=== PATIENT | female | born 1965 | race Caucasian/White ===

== ENCOUNTER → 2016-03-12 | Outpatient (CLI) | payer BC ==
[~2016-03-12] MED LIST: ECHI125T PO; MULTTAB5 PO
[2016-03-12 13:28] LABS: BASO % 0.2 %; BASO ABS # 0.02 K/uL (0-0.2); COMPLETE YES; EOS % 0.5 %; HEMATOCRIT 39.6 % (37-47); IG% 0.2 %; LYMPH % 24.6 %; LYMPH ABS # 2.02 K/uL (1.2-3.4); MEAN CELL VOLUME 89.8 fL (80-100); MEAN CORPUSCULAR HEMOGLOBIN 30.2 pg (25-34); MEAN CORPUSCULAR HGB CONC 33.6 g/dl (32-36); MONO % 6.4 %; NEUT % 68.1 %; PLATELET COUNT 278 K/uL (130-400); RED BLOOD COUNT 4.41 M/uL (4.2-5.4); WHITE BLOOD COUNT 8.22 K/uL (4.8-10.8)
[2016-03-12 13:55] LABS: PREG INTERNAL NEGATIVE QC NEG CLEAR BACKGROUND; PREG INTERNAL POSITIVE QC POS CONTROL LINE
== END | disposition home or self-care (01) ==
LOC: C.CPL 12:05
PROVIDERS: ATTEND Obstetrics & Gynecology
DX: Z01.810 Encounter for preprocedural cardiovascular examination (principal); Z01.812 Encounter for preprocedural laboratory examination; I49.3 Ventricular premature depolarization

== ENCOUNTER → 2016-03-15 | Day surgery (SDC) | payer BC ==
[2016-03-08 13:07] VITALS: Ht 170.2 cm; Wt 99.1 kg
--- NOTE | 2016-03-12 12:01 | HISTORY & PHYSICAL EXAMINATION ---
DATE OF ADMISSION: 03/15/16 CHIEF COMPLAINT: Irregular bleeding, abnormal transvaginal ultrasound. HISTORY OF PRESENT ILLNESS: The patient is a 50-year-old nullip, had been menopausal for over a year and during the last year, she has had 3 episodes of bleeding of 5-6 days and some of the episodes are heavy. She had a transvaginal ultrasound on 02/28/2016 showing a 1 cm thick endometrium with a few cystic areas. PAST SURGICAL HISTORY: She has had a scope for an upper GI and she has had wisdom teeth. PAST MEDICAL HISTORY: No history of rheumatic fever, heart disease, heart murmur, diabetes, tuberculosis. She is on no chronic medications. SOCIAL HISTORY: No smoking. No alcohol intake. Works for [employer] FAMILY HISTORY: Mom is 80, overweight, high blood pressure. Father at age 82, congestive heart failure. One sister and 1 brother in good health. REVIEW OF SYSTEMS: Had no symptoms of frequent or severe headaches, ear infections, nosebleed, sore throats, and kidney or bladder infections. PHYSICAL EXAMINATION: GENERAL: Well-developed, well-nourished 50-year-old white female, alert, oriented x3 and cooperative, in no acute distress, appears stated age. EYES: Conjunctivae are pink, sclerae white, no evidence of jaundice. EARS: Had normal light reflex bilaterally. NOSE: Had normal mucosa. Septum is midline. There were no polyps. THROAT: No erythema or evidence of infection. Teeth are in good state of repair. HEAD: Normocephalic, normal distribution of hair. NECK: Supple. Trachea midline. Thyroid is not enlarged. There is no adenopathy appreciated. Both carotids are of good intensity. CHEST: Clear to auscultation and percussion. No wheezes, rales or rhonchi appreciated. HEART: Had regular rhythm. S1 and S2 are normal. BREASTS: Normal. ABDOMEN: Soft and nontender. PELVIC: Revealed atrophic vaginitis, normal appearing cervix. Uterus was top, normal size, and no adnexal masses appreciated. IMPRESSIONS OF THIS CASE: Abnormal transvaginal ultrasound, postmenopausal bleeding. [facility], [place]
[~2016-03-15] VITALS: Ht 170.2 cm; Wt 99.1 kg
[~2016-03-15] MED LIST changes: +ATROPINE SULFATE 0.1 MG/ML 5ML SYR IV PRN; +DEXAMETHASONE SOD INJ 4 MG/ML VIAL ONE; +EpHEDrine SULFATE INJ 50 MG/ML AMP IV PRN; +FENTANYL CITRATE INJ 50 MCG/1 ML 2 ML VIAL IV PRN; +FENTANYL CITRATE INJ 50 MCG/1 ML 2 ML VIAL ONE; +HYDROCODONE/ACETAMOPHEN 5/325MG TAB PO PRN; +IBUPROFEN 600 MG TAB PO PRN; +KETOROLAC TROMETHAMINE 30 MG/ML VIAL IV. PRN; +KETOROLAC TROMETHAMINE 30 MG/ML VIAL ONE; +LACTATED RINGER'S 1000ML 1,000 ML IV SCH; +LIDOCAINE HCL 2% 2 ML VIAL (20MG/ML) ONE; +MIDAZOLAM HCL 1 MG/ML 2ML VIAL ONE; +ONDANSETRON INJ 2 MG/ML 2 ML VIAL IV PRN; +ONDANSETRON INJ 2 MG/ML 2 ML VIAL ONE; +OXYCODONE/ACETAMINOPHEN 5-325 TAB PO PRN; +PROPOFOL IV EMULSION 10 MG/ML 20 ML VIAL IV ONE; +SODIUM CHLORIDE 0.9% 1000ML 1,000 ML IV SCH
--- NOTE | 2016-03-15 11:55 | History & Physical Bridge Note ---
H&P Re-Evaluation Bridge Note: I have examined the patient, reviewed the History & Physical and in the interval since the performance of the History & Physical I have noted the following changes of clinical significance: No changes noted Patient for dilatation curettage and hysteroscopy
--- NOTE | 2016-03-15 12:32 | [facility] Post Operative Brief Note ---
Immediate Operative Summary Operative Date Mar 15, 2016. Pre-Operative Diagnosis Post Menopausal Bleeding Post-Operative Diagnosis same Procedure(s) Performed Dilatation And Curettage, Hysteroscopy Surgeon Dr. Jena King Legal File Clerk Surgeon(s) 0 Estimated Blood Loss 5cc Findings uterus sounded to 8 cm Specimens A. Endometrial Curettings Complication(s) None Disposition Recovery Room / PACU
--- NOTE | 2016-03-15 12:35 | Discharge Instructions-SurgCtr ---
Discharge Instructions Visit Reason for Visit: Irregular Menses, Thickened Endometrium Discharge Discharge Diagnosis / Problem: same as above Discharge Goals Goal(s): Learn about illness Medications Stopped Medications Name(s): Ecenashia stopped 03/09/16. Restart Stopped Medication(s): ACTIVITY RECOMMENDATIONS: * Avoid tampons, douching, hot tubs, pools, and intercourse until bleeding has stopped. * May shower as usual. * No strenuous activity for 24-48 hours. After 24-48 hours, you may do anything you feel like doing (driving and sports are okay). SPECIAL CARE INSTRUCTIONS: Special Diet: * Mild nausea may occur in the immediate post-operative period. * Take clear liquids such as tea, cola or bouillon until all nausea has subsided; you may then resume your normal diet. Special Care: * Light bleeding and vaginal spotting can last from a few days to 3-4 weeks. Call your doctor if bleeding becomes heavier than the heaviest part of your period. * Check your temperature twice a day for one week. If it goes above 100.4 degrees Fahrenheit (38.0 Celsius), notify your doctor. * Call your doctor's office for an appointment for 6 weeks after your surgery. FOLLOW-UP VISIT: Call your doctor's office for an appointment for 6 weeks after your surgery. Activity Recommendations Activity Limitations: as noted below ACTIVITY RECOMMENDATIONS: * Avoid tampons, douching, hot tubs, pools, and intercourse until bleeding has stopped. * May shower as usual. * No strenuous activity for 24-48 hours. After 24-48 hours, you may do anything you feel like doing (driving and sports are okay). SPECIAL CARE INSTRUCTIONS: Special Diet: * Mild nausea may occur in the immediate post-operative period. * Take clear liquids such as tea, cola or bouillon until all nausea has subsided; you may then resume your normal diet. Special Care: * Light bleeding and vaginal spotting can last from a few days to 3-4 weeks. Call your doctor if bleeding becomes heavier than the heaviest part of your period. * Check your temperature twice a day for one week. If it goes above 100.4 degrees Fahrenheit (38.0 Celsius), notify your doctor. * Call your doctor's office for an appointment for 6 weeks after your surgery. FOLLOW-UP VISIT: Call your doctor's office for an appointment for 6 weeks after your surgery. Anesthesia . Post Anesthesia Instructions: If you have had General Anesthesia or IV Sedation: * Do not drive today. * Resume driving when surgeon permits. * Do not make important decisions or sign legal documents today. * Call surgeon for: 1. Temperature elevations greater than 101 degrees F. 2. Uncontrollable pain. 3. Excessive bleeding. 4. Persistent nausea and vomiting. 5. Medication intolerance (nausea, vomiting or rash). * For nausea and vomiting use only clear liquids such as: tea, soda, bouillon until nausea subsides, then gradually increase diet as tolerated. * If you have any concerns or questions, call your surgeon's office. If physician is unavailable and it is an emergency, call 911 or go to the nearest emergency room. . Diet Recommendations Home Diet: resume previous diet Procedures Procedures Performed: Dilatation And Curettage, Hysteroscopy Pending Studies Studies pending at discharge: no Medical Emergencies . Who to Call and When: Medical Emergencies: If at any time you feel your situation is an emergency, please call 911 immediately. . Non-Emergent Contact Non-Emergency issues call your: Breast Puller Call Non-Emergent contact if: temperature is above 100.5 . . "Provider Documentation" section prepared by Ivan King.
--- NOTE | 2016-03-15 12:39 | OPERATIVE REPORT ---
DATE OF OPERATION: 03/15/2016 INDICATIONS FOR SURGERY: Postmenopausal bleeding, abnormal transvaginal ultrasound. PREOPERATIVE DIAGNOSIS: Postmenopausal bleeding, abnormal transvaginal ultrasound. POSTOPERATIVE DIAGNOSIS: Uterus sounded to 8 cm. PROCEDURE: D\T\C, hysteroscopy. SURGEON: Dr. King. ESTIMATED BLOOD LOSS: 5 mL. ANESTHESIA: General. OPERATIVE FINDINGS AND PROCEDURE: The patient was brought to the OR table, correctly identified by armband and conversation. General anesthesia was administered. Perineum and vagina were painted with Betadine paint, draped in usual sterile fashion. Catheter was used to empty the bladder. Careful pelvic exam under anesthesia revealed a normal sized anteverted uterus. There were no adnexal masses appreciated. Weighted speculum was placed in the posterior vagina. Anterior lip of the cervix was grasped with single tenaculum. Uterus was sounded to 8 cm. Cervix was dilated with graduated dilators. Hysteroscope with normal saline distention medium was inserted into the uterine cavity. Photographs were taken. The 2 ostia were visualized, then the scope was removed. Small sharp serrated curette was placed in the uterine cavity. All 4 quadrants of the uterus were thoroughly and systematically cureted. This was productive of a moderate amount of grossly normal tissue. The uterine cavity was curetted several times and then ovum forceps was inserted in the uterine cavity, opened and closed several times and additional tissue was removed in that fashion. Following thorough systematic curettage of the entire endometrial cavity hemostasis was good. Instruments were removed. The patient tolerated the procedure well and left the OR in good condition. I attest to the content of the Intraoperative Record and any orders documented therein. Any exceptio ns are noted below.
[2016-03-15 13:11] VITALS: TEMP 36.4
--- NOTE | 2016-03-15 13:37 | Anesthesia Progress Nt - [facility] ---
Anesthesia Post Op Note Date & Time Mar 15, 2016 at 13:36 Vital Signs Pain Intensity: 0 Vital Signs Past 12 Hours Date Time Temp Pulse Resp B/P Pulse Ox O2 Delivery O2 Flow Rate FiO2 03/15/16 13:11 36.4 63 16 138/79 100 Room Air 03/15/16 13:02 140/77 03/15/16 12:59 65 14 03/15/16 12:59 65 14 99 03/15/16 12:58 36.4 138/103 03/15/16 12:56 60 15 99 03/15/16 12:56 63 18 100 03/15/16 12:54 128/84 03/15/16 12:49 121/86 03/15/16 12:46 60 15 03/15/16 12:46 59 15 100 03/15/16 12:43 123/84 03/15/16 12:41 65 16 03/15/16 12:41 64 16 100 03/15/16 12:39 123/75 03/15/16 12:33 119/75 03/15/16 12:32 36.3 76 16 106/64 96 Mask 6 03/15/16 12:32 106/64 03/15/16 12:31 65 03/15/16 12:31 65 98 03/15/16 11:19 36.3 75 18 140/98 99 Room Air Notes Mental Status: alert / awake / arousable, participated in evaluation Pt Amnestic to Procedure: Yes Nausea / Vomiting: adequately controlled Pain: adequately controlled Airway Patency, RR, SpO2: stable & adequate BP & HR: stable & adequate Hydration State: stable & adequate Anesthetic Complications: no major complications apparent
[2016-03-15 13:38] VITALS: BP 138/89; PULSE 66; O2SAT 98
== END | disposition home or self-care (01) ==
LOC: X.SURG 11:01
PROVIDERS: ATTEND Obstetrics & Gynecology
DX: N95.0 Postmenopausal bleeding (principal); R93.8 Abnormal findings on diagnostic imaging of other specified body structures

== ENCOUNTER → 2016-08-22 | Outpatient (CLI) | payer BC, OTHER ==
[~2016-08-22] MED LIST changes: -ATROPINE SULFATE 0.1 MG/ML 5ML SYR IV PRN; -DEXAMETHASONE SOD INJ 4 MG/ML VIAL ONE; -EpHEDrine SULFATE INJ 50 MG/ML AMP IV PRN; -FENTANYL CITRATE INJ 50 MCG/1 ML 2 ML VIAL IV PRN; -FENTANYL CITRATE INJ 50 MCG/1 ML 2 ML VIAL ONE; -HYDROCODONE/ACETAMOPHEN 5/325MG TAB PO PRN; -IBUPROFEN 600 MG TAB PO PRN; -KETOROLAC TROMETHAMINE 30 MG/ML VIAL IV. PRN; -KETOROLAC TROMETHAMINE 30 MG/ML VIAL ONE; -LACTATED RINGER'S 1000ML 1,000 ML IV SCH; -LIDOCAINE HCL 2% 2 ML VIAL (20MG/ML) ONE; -MIDAZOLAM HCL 1 MG/ML 2ML VIAL ONE; -ONDANSETRON INJ 2 MG/ML 2 ML VIAL IV PRN; -ONDANSETRON INJ 2 MG/ML 2 ML VIAL ONE; -OXYCODONE/ACETAMINOPHEN 5-325 TAB PO PRN; -PROPOFOL IV EMULSION 10 MG/ML 20 ML VIAL IV ONE; -SODIUM CHLORIDE 0.9% 1000ML 1,000 ML IV SCH
--- NOTE | 2016-08-22 13:04 | MAMMOGRAPHY REPORT ---
UNILATERAL RIGHT DIGITAL DIAGNOSTIC MAMMOGRAM TOMOSYNTHESIS WITH CAD: 08/22/2016 CLINICAL HISTORY: Short interval follow-up diagnostic right mammogram for probably benign loosely carson uped microcalcifications in the right upper outer quadrant. TECHNIQUE: Right CC and MLO 2-D digital and tomosynthesis images, spot magnification right CC and ML views were obtained. Current study was also evaluated with a Computer Aided Detection (CAD) system. COMPARISON: Comparison is made to exams dated: 02/22/2016 mammogram, 02/14/2016 mammogram, 5 mammogram, 02/09/2014 mammogram, 02/06/2013 mammogram, and 02/04/2012 mammogram - [facility]. BREAST COMPOSITION: There are scattered areas of fibroglandular density in the right breast. FINDINGS: The right breast parenchyma pattern is similar to prior mammograms. There are 2 stable ron ign-appearing subcentimeter circumscribed masses in the lateral right breast. No new suspicious mass , developing asymmetry or focal area of architectural distortion is identified. Their are loosely gr ouped round and punctate microcalcifications in the upper outer middle one third of the right breast, best seen on the spot magnification views. The number and configuration of the microcalcifications are unchanged comparing to the spot magnification views obtained 02/22/2016, and also likely present dating back to the 02/04/2012 mammograms, therefore likely benign. These most likely represent benig n fibrocystic changes. However, another short interval follow-up diagnostic right mammogram includin g spot magnification views is recommended to ensure longer stability with the improved visualization on the spot magnification views. IMPRESSION: ACR-BI-RADS CATEGORY 3: PROBABLY BENIGN Stable mammographic appearance of the right breast, including probably benign loosely grouped microca lcifications in the upper outer quadrant. Another short interval follow-up diagnostic right mammogra m with repeat spot magnification views is recommended in 6 months. Annual left mammography will also be due at that time. These results and recommendations were discussed with the patient at the time of the exam. Approximately 10% of breast cancers are not detected with mammography. A negative mammographic report should not delay biopsy if a clinically suggestive mass is present. Amy Jimenez M.D. ay/:08/22/2016 10:46:08 Cloud Infrastructure Architect: Danielle OWENS(Cyrus)(M), [facility] letter sent: Follow Up Recommended 3 BI-RADS Code: ACR-BI-RADS Category 3: Probably Benign
== END | disposition home or self-care (01) ==
LOC: C.MAMM 10:02
PROVIDERS: ATTEND Obstetrics & Gynecology
DX: R92.2 Inconclusive mammogram (principal); R92.0 Mammographic microcalcification found on diagnostic imaging of breast

== ENCOUNTER → 2016-10-08 | Day surgery (SDC) | payer BC, OTHER ==
[2016-09-18 12:05] VITALS: BMI 32.0
[~2016-10-08] VITALS: Ht 170.2 cm; Wt 95.0 kg
[~2016-10-08] MED LIST changes: +LIDOCAINE HCL 2% 2 ML VIAL (20MG/ML) ONE; +PROPOFOL IV EMULSION 10 MG/ML 20 ML VIAL IV ONE
[2016-10-08 10:01] VITALS: Ht 170.2 cm; Wt 95.0 kg
--- NOTE | 2016-10-08 10:40 | Endo History and Physical ---
History & Physical Date of Service: Oct 08, 2016. Chief Complaint: SCREENING Referring Physician: DR ANDERSON History of Present Illness 51 yo CF who presents for screening colonoscopy. Past Surgical History Hx Cardiac Surgery: No Hx Internal Defibrillator: No Hx Pacemaker: No Hx Abdominal Surgery: Yes (D&C) Hx of Implantable Prosthesis: No Hx Post-Op Nausea and Vomiting: No Hx Cancer Surgery: No Hx Thoracic Surgery: No Hx Orthopedic: No Hx Urinary Tract Surgery: No Family History None Social History Smoking Status: Former Smoker Hx Substance Use: No Hx Alcohol Use: Yes (3-4 DRINKS/WEEK) Allergies Coded Allergies: Sulfamethoxazole w/Trimethoprim (Verified Allergy, Unknown, RASH, 10/08/16) Current Medications Reported Home Medications Medications Dose Route/Sig Max Daily Dose Days Date Category Echinacea 125 Mg Tab 1-2 Tabs PO DAILY PRN 03/08/16 Reported Centrum (Multiple Vitamins W/ Minerals) 1 Tab Tab 1 Tab PO QAM 03/08/16 Reported Vital Signs Weight (Kilograms): 95.00 Height (Feet): 5 Height (Inches): 7 Date Time Temp Pulse Resp B/P (MAP) Pulse Ox O2 Delivery O2 Flow Rate FiO2 10/08/16 10:07 36.5 67 18 103/74 (84) 98 Room Air Physical Exam General Appearance: WD/WN, no apparent distress Respiratory/Chest: Auscultation: breath sounds normal Cardiovascular: Heart Auscultation: RRR Abdomen: Bowel Sounds: normal Inspection & Palpation: soft, non-distended, no tenderness, guarding & rebound Assessment and Plan Assessment: 51 yo CF who presents for screening colonoscopy. Plan: Proceed with colonoscopy.
--- NOTE | 2016-10-08 11:12 | Discharge Instructions ---
Endoscopy Patient Instructions Date / Procedure(s) Performed Oct 08, 2016. Colonoscopy Allergy Information Coded Allergies: Sulfamethoxazole w/Trimethoprim (Verified Allergy, Unknown, RASH, 10/08/16) Discharge Date / Findings Oct 08, 2016. Diverticulosis Internal hemorrhoids Medication Instructions OK to resume all medications today as prescribed Reported Home Medications Medications Dose Route/Sig Max Daily Dose Days Date Category Echinacea 125 Mg Tab 1-2 Tabs PO DAILY PRN 03/08/16 Reported Centrum (Multiple Vitamins W/ Minerals) 1 Tab Tab 1 Tab PO QAM 03/08/16 Reported Provider Instructions Activity Restrictions - No exercising or heavy lifting for 24 hours. - Do not drink alcohol the day of the procedure. - Do not drive a car or operate machinery until the day after the procedure. - Do not make any important decisions or sign important papers in 24 hours after the procedure. Following Day: - Return to full activity which may include returning to work/school. Diet Start your diet with liquids and light foods (jello, soup, juice, toast). Then eat your usual diet if not nauseated. Treatment For Common After Affects For mild abdominal pain, bloating, or excessive gas: - Rest - Eat lightly - Lie on right side Follow-Up Information Follow-up with DR ANDERSON as scheduled Anesthesia Information What You Should Know You have had a procedure that required some medicine to reduce anxiety and discomfort. This treatment is called moderate sedation. After receiving the treatment, you may be sleepy, but you will be able to breathe on your own. The effects of the treatment may last for several hours. Follow these instructions along with Activity/Diet recommendations noted above: * Do NOT do anything where dizziness or clumsiness would be dangerous. * Rest quietly at home today, then you can be up and about tomorrow. * Have a responsible person stay with you the rest of today. * You may have had an I.V. today. If so, you may take the dressing off later today. Recommendations Call your doctor if: * Trouble breathing * Continuous vomiting for more than 24 hours * Temperature above 101 degrees * Severe abdominal pain or bloating * Pain not relieved by pain medicine ordered * There is increased drainage or redness from any incision * A large amount of rectal bleeding greater than 2-3 tablespoons. (If you had a polyp/s removed or have hemorrhoids, a small amount of blood - from the rectum is to be expected.) * You have any unanswered questions or concerns. IN THE EVENT OF A SERIOUS EMERGENCY, GO TO THE NEAREST EMERGENCY ROOM Your discharge instructions were prepared by provider Raj Rosario. Patient Instructions Signature Page Leigh Hicks Patient (or Guardian) Signature/Date: I have read and understand the instructions given to me by my caregivers. Caregiver/RN/Doctor Signature/Date: The above-named patient and/or guardian has received patient instructions on this date. + Original Patient Signature Page (only) stays with chart. Please make copy for patient.
--- NOTE | 2016-10-08 11:12 | GI REPORT ---
Procedure Date: 10/08/2016 10:49 AM THIS REPORT HAS BEEN AMENDED Addendum Number: 1 Addendum Date: 10/11/2016 1:18:14 PM No specimens were collected during this procedure, and therefore, no pathology is pending. Repeat colonoscopy in 10 years. Procedure: Colonoscopy Indications: Screening for colorectal malignant neoplasm Medicines: Monitored Anesthesia Care Complications: No immediate complications. Estimated Blood Loss: Estimated blood loss: none. Procedure: Pre-Anesthesia Assessment: - Prior to the procedure, a History and Physical was performed, and patient medications and allergies were reviewed. The patient's tolerance of previous anesthesia was also reviewed. The risks and benefits of the procedure and the sedation options and risks were discussed with the patient. All questions were answered, and informed consent was obtained. Prior Anticoagulants: The patient has taken no previous anticoagulant or antiplatelet agents. ASA Grade Assessment: II - A patient with mild systemic disease. After reviewing the risks and benefits, the patient was deemed in satisfactory condition to undergo the procedure. After I obtained informed consent, the scope was passed under direct vision. Throughout the procedure, the patient's blood pressure, pulse, and oxygen saturations were monitored continuously. The Scope was introduced through the anus and advanced to the terminal ileum. The colonoscopy was performed without difficulty. The patient tolerated the procedure well. The quality of the bowel preparation was good. The terminal ileum, ileocecal valve, appendiceal orifice, and rectum were photographed. Findings: Scattered small-mouthed diverticula were found in the ascending colon. Non-bleeding internal hemorrhoids were found during retroflexion. The hemorrhoids were small. Impression: - Diverticulosis in the sigmoid colon. - Non-bleeding internal hemorrhoids. - No specimens collected. Recommendation: - Resume previous diet. - Continue present medications. - Repeat colonoscopy for surveillance based on pathology results. - Return to primary care physician as previously scheduled. Raj Rosario, DO 10/08/2016 11:11:41 AM This report has been signed electronically. Note Initiated On: 10/08/2016 10:49 AM I attest to the content of the Intraoperative Record and orders documented therein, exceptions below Raj ElliottChele Rosario, DO 10/11/2016 1:18:52 PM This report has been signed electronically.
[2016-10-08 11:35] VITALS: BP 122/87; PULSE 64; O2SAT 100
--- NOTE | 2016-10-08 11:35 | Anesthesiology Progress Note ---
Anesthesia Post Op Note Date & Time Oct 08, 2016 at 11:35 Vital Signs Vital Signs Past 12 Hours Date Time Temp Pulse Resp B/P (MAP) Pulse Ox O2 Delivery O2 Flow Rate FiO2 10/08/16 11:20 62 12 108/77 (87) 99 Room Air 10/08/16 11:05 65 12 111/62 (78) 97 Room Air 10/08/16 10:07 36.5 67 18 103/74 (84) 98 Room Air Notes Mental Status: alert / awake / arousable, participated in evaluation Pt Amnestic to Procedure: Yes Nausea / Vomiting: adequately controlled Pain: adequately controlled Airway Patency, RR, SpO2: stable & adequate BP & HR: stable & adequate Hydration State: stable & adequate Anesthetic Complications: no major complications apparent
== END | disposition home or self-care (01) ==
LOC: C.GI 09:52
PROVIDERS: ATTEND Internal Medicine
DX: Z12.11 Encounter for screening for malignant neoplasm of colon (principal); Z87.891 Personal history of nicotine dependence

== ENCOUNTER → 2016-10-24 | Outpatient (CLI) | payer BC ==
[~2016-10-24] MED LIST changes: -LIDOCAINE HCL 2% 2 ML VIAL (20MG/ML) ONE; -PROPOFOL IV EMULSION 10 MG/ML 20 ML VIAL IV ONE
[2016-10-24 09:55] LABS: GLUCOSE 96 mg/dl (70-99)
[2016-10-24 09:56] LABS: BLOOD UREA NITROGEN 23 mg/dl (7-18); BUN/CREATININE RATIO 28.3 (10-20); CALCIUM 9.4 mg/dl (8.5-10.1); CARBON DIOXIDE 29 mmol/L (21-32); CHLORIDE 108 mmol/L (98-107); CHOLESTEROL 181 mg/dl (0-200); POTASSIUM 4.2 mmol/L (3.5-5.1); SODIUM 141 mmol/L (136-145); TRIGLYCERIDES 59 mg/dl (0-150); VERY LOW DENSITY LIPOPROT CALC 12 mg/dl
[2016-10-24 09:59] LABS: CHOLESTEROL/HDL RATIO 3.1; HDL CHOLESTEROL 58 mg/dl; LDL CHOLESTEROL CALCULATED 111 mg/dl
== END | disposition home or self-care (01) ==
LOC: C.LAB1850 07:57
PROVIDERS: ATTEND Internal Medicine Cardiovascular Disease
DX: R73.9 Hyperglycemia, unspecified (principal); E78.00 Pure hypercholesterolemia, unspecified; I10 Essential (primary) hypertension

== ENCOUNTER 2016-12-04 15:02 | Emergency (ER) | payer BC ==
[~2016-12-04] VITALS: Ht 170.2 cm; Wt 90.0 kg
[2016-12-04 15:06] VITALS: TEMP 37.3; Ht 170.2 cm; Wt 90.0 kg
[2016-12-04] MEDS ORDERED: SODIUM CHLORIDE 0.9% 1000ML 1,000 ML IV STA (15:28)
[2016-12-04] MEDS ORDERED: ONDANSETRON INJ 2 MG/ML 2 ML VIAL IV STA (15:28)
[2016-12-04] MEDS ORDERED: OPTIRAY 320 IV PRN (15:45)
[2016-12-04 15:56] LABS: BASO % 0.3 %; BASO ABS # 0.03 K/uL (0-0.2); COMPLETE YES; EOS % 0.8 %; IG% 0.2 %; LYMPH ABS # 2.65 K/uL (1.2-3.4); MEAN CORPUSCULAR HEMOGLOBIN 29.9 pg (25-34); MEAN CORPUSCULAR HGB CONC 33.6 g/dl (32-36); MEAN PLATELET VOLUME 10.2 fL (7.4-10.4); MONO % 5.5 %; NEUT % 63.2 %; PLATELET COUNT 276 K/uL (130-400); RED BLOOD COUNT 4.72 M/uL (4.2-5.4); WHITE BLOOD COUNT 8.83 K/uL (4.8-10.8)
[2016-12-04 16:14] LABS: BUN/CREATININE RATIO 26.5 (10-20); CALCIUM 9.9 mg/dl (8.5-10.1); POTASSIUM 3.8 mmol/L (3.5-5.1)
[2016-12-04 16:16] LABS: PREG INTERNAL NEGATIVE QC NEG CLEAR BACKGROUND; PREG INTERNAL POSITIVE QC POS CONTROL LINE
--- NOTE | 2016-12-04 17:04 | DIAGNOSTIC IMAGING REPORT ---
CT HEAD WITHOUT CONTRAST (CT) CLINICAL HISTORY: Head pain status post trauma COMPARISON STUDY: No previous studies for comparison. TECHNIQUE: Axial CT of the brain is performed from the vertex to the skull base. IV contrast was not administered for this examination. A dose lowering technique was utilized adhering to the principles of ALARA. CT DOSE: FINDINGS: No intra or extra-axial mass lesions are visualized. There is no CT evidence of acute cortical infarction. There is no evidence of midline shift. There is no acute hemorrhage. No calvarial fractures are visualized. There are minimal white matter hypodensities likely on a small vessel basis. There is no evidence of pathologic ventricular dilatation. There is no evidence of acute sinusitis IMPRESSION: No acute intracranial findings Electronically signed by: Jean Desir M.D. 12/04/2016 5:03 PM Dictated Date/Time: 12/04/2016 5:02 PM
--- NOTE | 2016-12-04 17:06 | DIAGNOSTIC IMAGING REPORT ---
CT OF THE CERVICAL SPINE CLINICAL HISTORY: EVALUATE FOR TRAUMA/INJURY COMPARISON STUDY: No previous studies for comparison. CT DOSE: 3037.91 mGy.cm TECHNIQUE: CT scan of the cervical spine was performed from the skull base to the thoracic inlet. Images are reviewed in the axial, sagittal, and coronal planes. IV contrast was not administered for this examination. A dose lowering technique was utilized adhering to the principles of ALARA. FINDINGS: The visualized portions of the lung apices reveal no evidence of pneumothorax. The prevertebral soft tissues are normal. No fractures or subluxations are visualized. 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 There are mild multilevel degenerative changes. IMPRESSION: No evidence of acute fracture or traumatic subluxation. Electronically signed by: Jean Desir M.D. 12/04/2016 5:05 PM Dictated Date/Time: 12/04/2016 5:03 PM
[2016-12-04 17:15] LABS: URINE APPEARANCE CLEAR (CLEAR); URINE BILIRUBIN NEG (NEG); URINE COLOR YELLOW; URINE NITRITE NEG (NEG); URINE SPECIFIC GRAVITY 1.034 (1.000-1.030); UROBILINOGEN NEG (NEG)
[2016-12-04 17:17] LABS: MANUAL MICROSCOPIC REQUIRED? NO; REVIEW REQ? NO
--- NOTE | 2016-12-04 17:22 | DIAGNOSTIC IMAGING REPORT ---
CHEST, ABDOMEN, AND PELVIS CT WITH CONTRAST CT DOSE: HISTORY: EVALUATE FOR TRAUMA/INJURY TECHNIQUE: Multiaxial CT images of the chest, abdomen, pelvis were performed following the intravenous and oral administration of contrast. A dose lowering technique was utilized adhering to the principles of ALARA. COMPARISON: None. FINDINGS: No pleural effusions. No pneumothorax. Mild dependent changes seen within the lower lobes posteriorly. The lungs are otherwise clear. There is a 6.5 x 2.2 cm bleb along the anteromedial aspect of the right upper lobe. The mediastinal vascular structures are within normal limits. No mediastinal or hilar lymphadenopathy. No fractures within the visualized osseous structures of the chest. A 9 mm hypodense lesion within the lateral aspect of the right hepatic lobe. This is too small to characterize but favors a small cyst or hemangioma. The gallbladder, kidneys, pancreas, adrenal glands, and spleen are unremarkable. A few small cysts within the left ovary. The bladder, uterus, and right ovary are unremarkable. Normal appendix. No pelvic free fluid. No bowel wall thickening or obstruction. No retroperitoneal lymphadenopathy. No fractures within the visualized osseous structures. IMPRESSION: 1. No acute traumatic process within the chest, abdomen, or pelvis. 2. A 6.5 x 2.2 cm bleb along the anterior medial aspect of the right upper lobe. Electronically signed by: Ezekiel Leal M.D. 12/04/2016 5:20 PM Dictated Date/Time: 12/04/2016 5:05 PM
[2016-12-04] MEDS ORDERED: LIDOCAINE/EPINEPH/TETRACAINE 1 EA SYR EXT STA (17:24)
[2016-12-04 19:58] VITALS: BP 146/93; PULSE 71; O2SAT 100
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
== END 2016-12-04 19:58 | disposition home or self-care (01) ==
LOC: EDBD 15:02 → C.EDD 15:03
DX: S01.01XA Laceration without foreign body of scalp, initial encounter (principal); T14.8XXA Other injury of unspecified body region, initial encounter; V19.9XXA Pedal cyclist (driver) (passenger) injured in unspecified traffic accident, initial encounter

== ENCOUNTER → 2017-02-14 | Outpatient (CLI) | payer OTHER ==
[~2017-02-14] MED LIST changes: -ECHI125T PO
--- NOTE | 2017-02-14 14:34 | MAMMOGRAPHY REPORT ---
BILATERAL DIGITAL DIAGNOSTIC MAMMOGRAM TOMOSYNTHESIS WITH CAD: 02/14/2017 CLINICAL HISTORY: Six-month follow-up of right breast calcifications. Due for routine mammography of the left breast. TECHNIQUE: Breast tomosynthesis in addition to standard 2D mammography was performed. Current study was also evaluated with a Computer Aided Detection (CAD) system. Bilateral CC and MLO 2-D and tomosy nthesis images and spot magnification right CC and MLO views were obtained. COMPARISON: Comparison is made to exams dated: 08/22/2016 mammogram, 02/22/2016 mammogram, 02/14/2016 mammogram, 02/10/2015 mammogram, 02/09/2014 mammogram, and 02/06/2013 mammogram - [facility]. BREAST COMPOSITION: There are scattered areas of fibroglandular density in both breasts. FINDINGS: Spot magnification views of the right breast again demonstrate loosely grouped calcificati ons within the right upper outer quadrant, which are predominantly punctate and round in morphology. The calcifications are stable on spot magnification views dating back to the January 2016 exam, and in retrospect are also stable dating back to the 2011 exam on full-field views. The calcifications are considered benign given the morphology and stability. There are no suspicious masses, calcifications, or areas of architectural distortion noted in either breast. There has been no significant interval change. Asymmetry within the right lateral posterior breast on the cc view appears similar to prior exams including the 2009 and 2008 exams, and has the appearance of normal fibroglandular tissue on the tomosynthesis images. Benign-appearing calcificati ons in the left upper outer quadrant are also stable. IMPRESSION: ACR BI-RADS CATEGORY 2: BENIGN Loosely grouped benign-appearing calcifications in the right upper outer quadrant are stable and are considered benign given the stability and benign morphology. There is no mammographic evidence of ma lignancy in either breast. A 1 year screening mammogram is recommended. The patient has been verball y notified of the results. Approximately 10% of breast cancers are not detected with mammography. A negative mammographic report should not delay biopsy if a clinically suggestive mass is present. Monique Hearn M.D. /:02/14/2017 09:17:46 Groundsman: Marguerite OWENS(Cyrus)(Aba), [facility] letter sent: Normal 1/2 BI-RADS Code: ACR BI-RADS Category 2: Benign
== END | disposition home or self-care (01) ==
LOC: C.MAMM 08:49
PROVIDERS: ATTEND Obstetrics & Gynecology
DX: R92.1 Mammographic calcification found on diagnostic imaging of breast (principal)